=== PATIENT | female | born 1985 | race African-American/Black ===

== ENCOUNTER 2016-05-24 13:03 | Emergency (ER) | payer OTHER ==
[~2016-05-24] VITALS: Ht 170.2 cm; Wt 68.5 kg
[~2016-05-24 13:03] MED LIST: DOXYCYCLINE HY100 MG PO; LO LOESTRIN FE1 EACH PO; NOHOMEMEDS; ONE DAILY1 EAC3 PO
[2016-05-24] MEDS ORDERED: BACTRIM,SEPT1 TABLET PO (17:37)
[2016-05-24 17:47] VITALS: BP 110/64
== END 2016-05-24 18:00 | disposition home or self-care (01) ==
LOC: EME 13:03
PROC: 0H9BXZZ Drainage of Right Upper Arm Skin, External Approach (ICD-10-PCS; principal; 2016-05-24)
DX: L02.411 Cutaneous abscess of right axilla (principal)
CPT/HCPCS: 99281; 99283; S0020

== ENCOUNTER 2017-07-06 11:37 | Emergency (ER) | payer OTHER ==
[~2017-07-06] VITALS: Ht 170.2 cm; Wt 64.5 kg
[~2017-07-06 11:37] MED LIST changes: +BACTRIM,SEPT1 TABLET PO
[2017-07-06 12:09] VITALS: BP 106/65
== END 2017-07-06 16:01 | disposition left against medical advice (07) ==
LOC: EME 11:37
DX: O26.892 Other specified pregnancy related conditions, second trimester (principal); M54.5 Low back pain; Z3A.09 9 weeks gestation of pregnancy; Z53.21 Procedure and treatment not carried out due to patient leaving prior to being seen by health care provider; J30.9 Allergic rhinitis, unspecified; Z72.0 Tobacco use; Z91.040 Latex allergy status; Z88.1 Allergy status to other antibiotic agents
CPT/HCPCS: 80048; 81003; 84702; 85027; 99281; 99284